=== PATIENT | female | born 1985 | race Caucasian/White ===

== ENCOUNTER → 2019-10-02 09:44 | Outpatient (CLI) | payer OTHER, SELFPAY ==
--- NOTE | ~2019-10-02 | XR_ITS ---
EXAMINATION: XR thoracic spine 2V DATE: 10/02/2019 10:42 INDICATION: Mid to lower back pain TECHNIQUE: AP, lateral and lateral swimmer's views of the thoracic spine were obtained. COMPARISON: None. FINDINGS: There is no fracture, dislocation, or subluxation. The vertebral body heights, alignment, a nd intervertebral disc spaces are normal. The paravertebral soft tissues are unremarkable. IMPRESSION: 1. Normal thoracic spine. Reviewed, dictated and finalized at location A. IMPRESSION: 1. Normal thoracic spine.
--- NOTE | ~2019-10-02 | XR_ITS ---
EXAMINATION: XR lumbar spine 2-3V DATE: 10/02/2019 10:42 INDICATION: Mid to low back pain TECHNIQUE: Anteroposterior and lateral views of the lumbar spine, and cone-down lateral view of the l umbosacral junction were obtained. COMPARISON: None. FINDINGS: There is mild loss of intervertebral disc space height at L5-S1. Small degenerative osteoph ytes project from the anterior endplates of multiple vertebral bodies. No fracture is identified. The vertebral body heights and alignment are normal. IMPRESSION: 1. Mild lumbar spondylosis without acute findings. Reviewed, dictated and finalized at location A.
--- NOTE | ~2019-10-02 | XR_ITS ---
EXAMINATION:XR_[id number]_CR DATE: 10/02/2019 10:42 INDICATION: Neck pain TECHNIQUE: AP, lateral, lateral swimmers and odontoid views of the cervical spine are provided. COMPARISON: None FINDINGS: Alignment is normal. There is straightening of the cervical spine which can be positional o r due to muscular spasm. The odontoid is intact. No fracture is identified. Vertebral body heights an d disk spaces are normal. Prevertebral soft tissues are normal. IMPRESSION: 1. Mild straightening of the cervical spine which can be positional or due to muscular spasm. Reviewed, dictated and finalized at location A. IMPRESSION: 1. Mild straightening of the cervical spine which can be positional or due to m uscular spasm.
== END ==
PROVIDERS: PCP Family Medicine; Visit Provider Chiropractor
DX: M47.896 Other spondylosis, lumbar region (principal); M54.2 Cervicalgia; M54.6 Pain in thoracic spine
CPT/HCPCS: 72040; 72070; 72100